=== PATIENT | male | born 1960 | race African-American/Black ===

== ENCOUNTER 2018-02-25 11:55 | Outpatient (REF) | payer OTHER, SELFPAY ==
[2018-02-25 18:59] LABS: HCT 43.6 % (40.0-50.0); HGB 14.9 g/dL (13.5-17.5); Mean Corp. HGB Concentration 34.2 g/dL (32.0-36.0); Mean Corpuscular Hemoglobin 34.6 pg (27.0-33.0); Mean Corpuscular Volume 101.2 fL (80-95); Mean Platelet Volume 11.7 fL (8.0-11.0); Platelet Count 199 x1000/uL (130-400); RBC 4.31 m/cumm (4.50-6.00); RBC Distribution Width 11.4 % (11.8-14.1); White Blood Cell Count 4.83 k/cumm (4.4-10.8)
[2018-02-25 19:50] LABS: ALT 23 U/L (12-78); AST 21 U/L (15-37); Albumin 3.7 g/dL (3.4-5.0); Alkaline Phosphatase 65 U/L (46-116); Anion Gap 6.6 mmol/L (3-11); BUN 15 mg/dL (7-18); Bilirubin, Total 0.8 mg/dL (0.2-1.0); CO2 30.4 mmol/L (21.0-32.0); CREATININE 1.03 mg/dL (0.70-1.30); Calcium 9.3 mg/dL (8.5-10.1); Chloride 102 mmol/L (98-107); Glucose 95 mg/dL (70-100); Potassium 4.3 mmol/L (3.5-5.1); Sodium 139 mmol/L (136-145); TSH (W/Ref FT4) 2.09 uIU/mL (0.358-3.74); Total Protein 7.7 g/dL (6.4-8.2)
[2018-02-27 12:28] LABS: Hepatitis Be Antigen Negative (Negative)
[2018-03-01 17:23] LABS: HBV DNA Detect/Quant, PCR 3490 IU/mL (Undetected)
== END 2018-02-25 12:15 ==
LOC: NCHCN 11:55
PROVIDERS: PCP Nurse Practitioner Adult Health; Visit Provider Nurse Practitioner
DX: B18.1 Chronic viral hepatitis B without delta-agent (principal); R63.4 Abnormal weight loss
CPT/HCPCS: 80053; 85027; 87517; 84443; 87350